=== PATIENT | female | born 1935 | race Caucasian/White ===

== ENCOUNTER 2022-12-15 09:06 | Outpatient (CLI) | payer MEDICARE ==
[2022-12-15] MEDS ORDERED: Iopamidol-370 76% 500 ML 1 ML ONE (10:19)
== END 2022-12-15 09:07 | disposition home or self-care (01) ==
LOC: CSHRAD 09:06
PROVIDERS: ATTEND Urology
DX: N12 Tubulo-interstitial nephritis, not specified as acute or chronic (principal)
CPT/HCPCS: 51600; 74455